=== PATIENT | female | born 1955 | race Caucasian/White ===

== ENCOUNTER → 2023-11-07 08:18 | Outpatient (REF) | payer MEDICARE, OTHER, SELFPAY | LOC: WDC 08:18 | PROVIDERS: ATTENDING PHYSICIAN Internal Medicine | DX: Z12.31 Encounter for screening mammogram for malignant neoplasm of breast (principal) | CPT/HCPCS: 77063; 77067 ==

== ENCOUNTER 2024-01-31 09:46 | Emergency (ER) | payer MEDICARE, OTHER, SELFPAY ==
[2024-01-31 09:47] VITALS: BP 146/67
--- NOTE | 2024-01-31 10:27 | ED.MUSCINJ ---
HPI-Injury
General
Chief Complaint: Musculo-Skeletal Complaint
Source: patient and spouse
Exam Limitations: none
Time Seen by Provider: 01/31/24 10:17
Nursing documentation reviewed up to this point in time: agreed with
History of Present Illness-Injury
Is this injury a work related problem?: No
Is pt an associate of [facility]/[place]?: No
Initial Injury comments:
68-year-old female presents emergency department due to a right ankle injury. She slipped on the ice on her steps. She fell onto her buttocks. She denies any other injuries. She did not hit her head.
Past History
Past History
ED Past Medical History: Hypercholesterolemia and Other (Osteoarthritis)
ED Past Surgical History: Other (benign breast tumor)
Social History
Tobacco: Non-smoker
Alcohol: None
Drug: None
Personal:
Living: with family
Review of Systems
Review of Systems
Allergies reviewed?: Yes
All Other Systems: Not applicable
Musculoskeletal: Reports joint pain and joint swelling
Phy Exam
Physical Exam
Physical Exam:
Right ankle swollen, crepitus, normal dorsalis pedis and posterior tibialis pulses
No other injuries noted
Injury Course
Orders/Labs/Results
Orders:
Orders
01/31/24 09:51
CR Ankle - Right Min 3 Views * Urgent
Comment:
Reason For Exam: injury, pain/swelling
01/31/24 11:28
Ketorolac [Toradol] 15 mg IM NOW STA
01/31/24 11:29
Tetanus/Diphth/Acelpertussis [Adacel] 0.5 ml IM .ONCE ONE
Procedures
Splinting/Sling Placement
Right Ankle:
Procedure completed by: Mary
Pre-splint extermity exam: neurovascular intact
Type of splint: posterior short leg and other (ankle stirrup)
Splint material: fiberglass
Splint checked by provider?: Yes
Normal distal neurovascular exam?: Yes
MDM/Problems Addressed
Differential Diagnosis Includes:
Open fracture, dislocation
MDM/Problems Addressed:
68-year-old female with right bimalleolar ankle fracture, closed. Minimal displacement.
*Radiology
Radiology exam reviewed: preliminary read by ED provider (Right ankle x-ray bimalleolar fracture) and radiology read reviewed (Right ankle x-ray bimalleolar fracture)
*Pulse Oximetry
Patient hypoxic: no
*Critical Care Note
Total Time (30-74mins, 75-104mins- exclusive of procedures): Not Applicable
Patient Management
Social determinants of health affecting care: Living situation and Strong social support
Discussion with other providers: Press Room Supervisor (Discussed with Dr. Hooper, who recommends splint and follow-up. Attempted shape and mild reduction)
Escalation/DeEscalation of care consider admission/obs:
Admit not indicated
ED Attending Note
-
Portions of this chart may have been created with voice recognition software.� Occasional wrong word or��sound alike� substitutions may have occurred due to the inherent limitations of voice recognition software.
Discharge Plan
Departure
Patient Disposition: Home (Routine Discharge)
Date of Disposition: 01/31/24
Time of Disposition: 11:22
Patient with high blood pressure during this ER visit?: Yes
Condition: Good
Discharge Problem:
Bimalleolar fracture of right ankle
Instructions: How to Use Crutches, Contusion (DC), Ankle Fracture ED, BLOOD PRESSURE
Prescriptions:
New
hydrocodone-acetaminophen 5-325 mg tablet
1 tab PO Q4H PRN (Reason: Pain) Qty: 10 0RF
Referrals:
Racheal Coleman MD [Family Provider] -
Terrance Hooper MD [Active] - Call in 1-3 days for appt
Interventions
Interventions:
*Risk Screen - Suicide Last Done: 01/31/24 09:47
*General Assessment Last Done: 01/31/24 09:47
*Neglect/Abuse Screening Last Done: 01/31/24 09:47
*ED COVID-19 Vaccine History Last Done: 01/31/24 09:47
*Nursing Disposition Last Done: 01/31/24 12:28
ED-Musculoskeletal Assessment Last Done: 01/31/24 11:19
Discharge Date and Time
Discharge Date/Time: 01/31/24 12:29
Print Language: ROMANIAN
[2024-01-31 10:38] VITALS: BMI 24.5
[2024-01-31] MEDS: TORADOL 15 MG IM (11:40)
[2024-01-31] MEDS: ADACEL 0.5 ML IM (11:43)
== END 2024-01-31 12:29 | disposition home or self-care (01) ==
LOC: EMR 09:46
PROVIDERS: EMERGENCY PHYSICIAN Emergency Medicine; FAMILY PHYSICIAN Internal Medicine
DX: S82.841A Displaced bimalleolar fracture of right lower leg, initial encounter for closed fracture (principal); W00.1XXA Fall from stairs and steps due to ice and snow, initial encounter; E78.00 Pure hypercholesterolemia, unspecified; Z23 Encounter for immunization
CPT/HCPCS: 29515; 96372; 90471; 99283; 73610; 90715

== ENCOUNTER 2024-07-14 06:25 | Day surgery (SDC) | payer MEDICARE, OTHER, SELFPAY | END 2024-07-14 10:16 | disposition home or self-care (01) | LOC: GI 06:25 | PROVIDERS: ATTENDING PHYSICIAN Internal Medicine; FAMILY PHYSICIAN Internal Medicine | DX: Z12.11 Encounter for screening for malignant neoplasm of colon (principal); K57.30 Diverticulosis of large intestine without perforation or abscess without bleeding; K64.9 Unspecified hemorrhoids | CPT/HCPCS: G0105 ==

== ENCOUNTER → 2024-11-10 10:35 | Outpatient (REF) | payer MEDICARE, OTHER, SELFPAY | LOC: WDC 10:35 | PROVIDERS: ATTENDING PHYSICIAN Internal Medicine | DX: Z12.31 Encounter for screening mammogram for malignant neoplasm of breast (principal) | CPT/HCPCS: 77063; 77067 ==